=== PATIENT | female | born 1985 | race Caucasian/White ===

== ENCOUNTER 2018-03-12 23:35 | Inpatient (IN) | payer MEDICAID, SELFPAY ==
[2018-03-12 23:53] VITALS: BMI 19.3
[2018-03-12] MEDS: Lactated Ringer's 1,000 ML IV SCH (23:53)
[2018-03-13] MEDS ORDERED: NS / Oxytocin 40 units/1000ml 1,000 ML IV PRN (00:04)
[2018-03-13] MEDS ORDERED: Promethazine HCl 25 MG/ML VIAL IM PRN ×2 (00:04→01:21)
[2018-03-13] MEDS ORDERED: HYDROcodone/Acetaminophen 5/325 mg Tablet PO PRN ×2 (00:04)
[2018-03-13] MEDS ORDERED: Lidocaine 1% (PF) 30 ML VIAL SC PRN (00:04)
[2018-03-13] MEDS ORDERED: Ibuprofen 800 MG TAB PO PRN (00:04)
[2018-03-13] MEDS ORDERED: Butorphanol Tartrate 1 MG/ML VIAL SLOW IVP PRN (00:04)
--- NOTE | 2018-03-13 00:10 | PDOC.EVN ---
Event Note - Event Note Event Note: OBGYN H&P Faculty Note Patient just admitted to L&D as a no care patient, at 6cm. I have put in admit orders including UDS as well as GC and CHL vaginal PCRs. GBS unknown...use risk factors for prophylaxis (none now) Dr trejo seeing her now as field service specialist for admit, I will see her next.
[2018-03-13] MEDS ORDERED: Ondansetron PF 4 MG/2 ML Vial ONE (00:12)
[2018-03-13] MEDS ORDERED: Ondansetron PF 4 MG/2 ML Vial IVP PRN ×2 (00:15→01:21)
--- NOTE | 2018-03-13 00:22 | PDOC.LDHP ---
Labor and Delivery H&P Chief complaint: contractions HPI: 32 yo @ 37 weeks by lmp c/w 16 week sono at [facility] and no other care presents for painful contractions starting 2 days [employer] that stopped yesterday and returned yesterday evening. No other complications and no complications in prior pregnancies. Pt denies headache, cp , sob, vaginal bleeding, LOF, vag discharge. Reports pos movement. No other complaints. Current gestational age (weeks): 37 (0) Due date: 04/03/18 Dating criteria: last menstrual period Grav: 6 Para: 5 OB History Details: No PNC Current complications: other (No care) Current medications: none Previous surgical history: none Allergies/Adverse Reactions: Allergies Allergy/AdvReac Type Severity Reaction Status Date / Time No Known Allergies Allergy Verified 03/12/18 23:49 Social history: none - Physical Exam Vital signs reviewed and normal: yes General: NAD, breathing through contractions Heart: RRR Lungs: nonlabored breathing Abdomen: NTTP Extremeties: trace edema FHT: category 1, variability present [place] contractions every: 3-5 - Vaginal Exam cm dilated: 6 Effacement: 90% Station: 0 - OB Labs Blood type: unknown RH: unknown Antibody Screen: unknown HIV: unknown RPR: unknown HEPSAg: unknown 1 hour GCT: unknown GBS: unknown - Assessment L&D Assessment: term patient in labor - Plan Plan: admit to L&D -: 1) TIUP in active labor - admit l&d currently sujit q3-5 FHTs bl 120s mod variability pos accels w /o lates or variables - epidural for pain control 2) No PNC - no PNC labs ordered and pending - blood type, GCC, HIV RPR, UDS, HepB - consult case management
[2018-03-13 00:30] LABS: Hemoglobin 12.4 g/dL (12.0-16.0); Mean Corpuscular HGB CONC 33.9 g/dL (32.0-36.0); Mean Corpuscular Hemoglobin 30.6 pg (27.0-31.0); Mean Corpuscular Volume 90.2 fL (78.0-98.0); Mean Platelet Volume 9.9 fL (7.4-10.4); Platelet Count 304 thou/uL (130-400); RBC Distribution Width 11.5 % (11.5-14.5); Red Blood Cell (RBC) Count 4.05 mill/uL (4.20-5.40); White Blood Cell (WBC) Count 8.3 thou/uL (4.8-10.8)
[2018-03-13] MEDS: Lactated Ringer's 1,000 ML IV SCH (00:36)
[2018-03-13] MEDS ORDERED: Fentanyl 4 mcg/Bup 0.1% Cadd 100 ML ONE (00:39)
[2018-03-13 00:58] LABS: Syphilis Antibody Nonreactive (Nonreactive); Syphilis Antibody Index 0.03 S/CO (<1.00 Non-Reactive)
[2018-03-13 01:16] LABS: HIV (1/2) Antibody/Antigen Non-Reactive (NonReactive); HIV 1/2 INDEX 0.07 S/CO (<1.00)
[2018-03-13 01:18] LABS: HBSAB Concentration 43.36 mIU/mL; Hep B Surf AB Reactive (NonReactive)
[2018-03-13] MEDS ORDERED: ePHEDrine/0.9% NaCl/PF SYRINGE 50 mg/10 ml SLOW IVP PRN (01:21)
[2018-03-13] MEDS ORDERED: diphenhydrAMINE 50 MG/ML VIAL IVP PRN (01:21)
[2018-03-13] MEDS ORDERED: Eucerin (Mineral Oil/Petrolatum,White) 30 gm Jar TOP PRN (01:21)
[2018-03-13] MEDS ORDERED: Lactated Ringer's 500 ML IV PRN (01:21)
[2018-03-13] MEDS ORDERED: Acetaminophen 325 MG TAB PO PRN (01:21)
[2018-03-13] MEDS ORDERED: Naloxone HCl 0.4 mg/ml Vial IVP PRN ×2 (01:21)
[2018-03-13] MEDS ORDERED: Communication Order-Pharmacy FS SCH (01:30)
[2018-03-13] MEDS ORDERED: Fentanyl 4 mcg/Bupivacaine 0.1% Cassette 100 ML EPIDURAL SCH (01:30)
[2018-03-13 02:04] LABS: Amphetamine Not Detected (NotDetected); Barbiturates Screen Not Detected (NotDetected); Benzodiazepine Screen Not Detected (NotDetected); Cocaine Metabolite Screen Not Detected (NotDetected); Medtox Control Line Valid? VALID (VALID); Medtox Reader # READER 4; Methadone Not Detected (NotDetected); Methamphetamine Detected (NotDetected); Opiate Screen Not Detected (NotDetected); Oxycodone Screen Not Detected (NotDetected); Phencyclidine (PCP) Not Detected (NotDetected); THC/Cannabinoid Screen Not Detected (NotDetected); Tricyclic Screen Not Detected (NotDetected)
[2018-03-13] MEDS: NS / Oxytocin 40 units/1000ml 1,000 ML IV SCH ×2 (05:15→06:09)
--- NOTE | 2018-03-13 05:24 | PDOC.OPDEL ---
OB Operative/Delivery Note Delivery Dr/Surgeon: Bhupendra/Matthew (Delivery by Bhupendra; Matthew Staff) Pre-Delivery Diagnosis: active labor, other (positive UDS for meth) Procedure/Post Delivery Dx: spontaneous vaginal delivery Weeks gestation: 37 Anesthesia: epidural - Findings A Sex: male - 1 min: 8 - 5 min: 9 - Additional Findings/Plan Placenta delivered: spontaneous (3VC, intact) Repaired Obstetrical Laceration: 1st degree (periurethral left, not requiring repair) Estimated blood loss: 300 (QBL pending) Compilations/Other Findings: Vigorous male with no NC, spont cry...no episiotomy; counts correct Post delivery plan: routine recovery (NICU aware of UDS)
--- NOTE | 2018-03-13 05:27 | PDOC.EVN ---
Event Note - Event Note Event Note: UDS positive for methampetamines...NICU aware. case management consulted.
[2018-03-13] MEDS ORDERED: Lanolin Ointment 7 GM TUBE TOP PRN (05:33)
[2018-03-13] MEDS ORDERED: Milk Of Magnesia 30 ML UDCUP PO PRN (05:33)
[2018-03-13] MEDS ORDERED: diphenhydrAMINE 25 MG CAP PO PRN (05:33)
[2018-03-13] MEDS ORDERED: Measles/Mumps/Rubella 10 MCG/0.5 ML VIAL SC ONE (05:33)
[2018-03-13] MEDS ORDERED: Adacel (T-DAP) 0.5 ML SYRINGE IM ONE (05:33)
[2018-03-13] MEDS ORDERED: Acetaminophen/Codeine 30-300mg Tablet PO PRN ×2 (05:33)
[2018-03-13] MEDS ORDERED: Varicella virus, LIVE 0.5 ML VIAL SC ONE (05:33)
[2018-03-13] MEDS ORDERED: Preparation H Ointment 28 GM TUBE PR PRN (05:33)
[2018-03-13] MEDS ORDERED: Benzocaine/Menthol 20-0.5% 60 ML CAN TOP PRN (05:33)
[2018-03-13] MEDS ORDERED: Bisacodyl 10 MG SUPP PR PRN (05:33)
--- NOTE | 2018-03-13 05:33 | PDOC.EVN ---
Event Note - Event Note Event Note: Lab Check: HBS antibody positive...we will draw Hep B surface antigen now (we charles antibody rather than antigen)
[2018-03-13 06:14] LABS: Acetaminophen Less than 6.0 mcg/mL (10.0-30.0); Alcohol Less than 10 mg/dL (Less than 10); Salicylate Less than 8.0 mg/dL (15.0-30.0)
[2018-03-13 06:22] LABS: HBSAg Index 0.21 S/CO (0-0.99); Hep B Surf Ag Non-Reactive S/CO (NonReactive)
[2018-03-13] MEDS: Ferrous Sulfate 325 MG TAB PO SCH ×2 (09:08→16:50)
[2018-03-13] MEDS: Prenatal Vitamin 1 TAB PO SCH (09:43)
[2018-03-13] MEDS: Ibuprofen 800 MG TAB PO SCH ×2 (09:43→17:23)
[2018-03-13] MEDS: Docusate Calcium (SURFAK) 240 MG CAP PO SCH ×2 (09:43→21:37)
[2018-03-13] MEDS ORDERED: Bupivacaine/Epinephrine 0.25% 30 ML VIAL ONE (17:57)
[2018-03-13] MEDS ORDERED: Bupivacaine PF 0.5% 30 ML VIAL ONE (17:57)
[2018-03-13] MEDS ORDERED: Sodium Chloride 0.9% (PF) 10 ML VIAL ONE (17:57)
[2018-03-13] MEDS ORDERED: Bupivacaine 0.25% HCL 30 ML VIAL ONE (17:57)
[2018-03-14] MEDS: Ibuprofen 800 MG TAB PO SCH ×4 (00:17→21:11)
[2018-03-14 05:49] LABS: Hemoglobin 10.1 g/dL (12.0-16.0); Mean Corpuscular HGB CONC 32.9 g/dL (32.0-36.0); Mean Corpuscular Hemoglobin 30.2 pg (27.0-31.0); Mean Corpuscular Volume 91.7 fL (78.0-98.0); Platelet Count 232 thou/uL (130-400); RBC Distribution Width 11.6 % (11.5-14.5); Red Blood Cell (RBC) Count 3.34 mill/uL (4.20-5.40); White Blood Cell (WBC) Count 9.1 thou/uL (4.8-10.8)
--- NOTE | 2018-03-14 08:00 | PDOC.PP ---
Post Progress Note Post Day #: 1 Subjective: Doing well, no complaints. PO intake tolerated: yes Ambulation: yes Vital Signs (12 hours) Temp Pulse Resp BP BP Pulse Ox 03/14/18 07:37 98.5 F 63 20 106/73 99 03/14/18 03:33 97.6 F 57 L 16 109/66 03/14/18 00:20 97.7 F 60 16 103/69 03/13/18 20:00 97.9 F 85 16 113/72 99 Weight Weight 120 lb - Physical Examination General: NAD Respiratory: non-labored breathing Abdominal: lochia (normal), no distention, appropriately TTP Fundus firm & at: below umbilicus Extremities: negative homans (B) Neurological: no gross focal deficits Psychiatric: A&Ox3, normal affect Result Diagrams: 03/14/18 05:31 Additional Labs: Post Labs Blood Type A POSITIVE 03/12/18 23:55 Hep Bs Antigen Non-Reactive S/CO (NonReactive) 03/12/18 23:55 (1) Grand multipara Code(s): Z64.1 - PROBLEMS RELATED TO MULTIPARITY Status: Acute (2) Methamphetamine use Code(s): F15.10 - OTHER STIMULANT ABUSE, UNCOMPLICATED Status: Acute (3) No care in current Code(s): O09.30 - SUPRVSN OF PREG W INSUFFICIENT ANTENAT CARE, UNSP TRIMESTER Status: Acute (4) Vaginal delivery Code(s): O80 - ENCOUNTER FOR FULL-TERM UNCOMPLICATED DELIVERY Status: Acute - Assessment/Plan Doing well without complaints. Concerned about + meth on urine drug screen. Serum drug screen pending. Case management consult pending. Anticipate d/c tomorrow.
[2018-03-14] MEDS: Prenatal Vitamin 1 TAB PO SCH (09:45)
[2018-03-14] MEDS: Docusate Calcium (SURFAK) 240 MG CAP PO SCH ×2 (09:45→21:11)
[2018-03-14] MEDS: Ferrous Sulfate 325 MG TAB PO SCH ×2 (09:45→18:41)
[2018-03-14 12:26] LABS: Ref Lab Test Ordered CONF URINE AMP/METHA; Reference Lab Name LABCORP
[2018-03-15] MEDS: Ibuprofen 800 MG TAB PO SCH (05:13)
[2018-03-15] MEDS: Ferrous Sulfate 325 MG TAB PO SCH (07:47)
[2018-03-15 08:23] VITALS: BP 116/81; TEMP 97.7
[2018-03-15] MEDS: Docusate Calcium (SURFAK) 240 MG CAP PO SCH (09:49)
[2018-03-15] MEDS: Prenatal Vitamin 1 TAB PO SCH (09:49)
--- NOTE | 2018-03-15 13:43 | PDOC.EVN ---
Event Note - Event Note Event Note: Patient discharged home this AM by Dr Koenig. I was asked to pace the discharge order after he evaluated her. Order placed by me but seen by Dr Koenig
[2018-03-15 14:14] LABS: Chlamydia by PCR Not Detected (NotDetected); GC by PCR Not Detected (NotDetected)
--- NOTE | 2018-03-15 21:45 | DIS ---
DATE OF ADMISSION: 03/13/2018 DATE OF DISCHARGE: 03/15/2018 ADMITTING DIAGNOSES: 1. Term . 2. No care. 3. Positive drug screen. DISCHARGE DIAGNOSES: 1. Term . 2. No care. 3. Positive drug screen. 4. Confirmatory test pending. PROCEDURE: Term spontaneous vaginal delivery. CONSULTATIONS: None. HOSPITAL COURSE: The patient is a 32-year-old female, who presented to Labor and Delivery without care and in active labor. She proceeded with an estimated gestational age of 37 weeks. She proceeded with uncomplicated term spontaneous vaginal delivery and was sent to for routine care. Her course has been complicated only by this drug screen positive for methamphetamines, which the patient denies use and is requesting a confirmatory test. Her course has otherwise been uncomplicated. OBJECTIVE: VITAL SIGNS: Blood pressure is 100/62, temperature 97.8, pulse of 65, respiratory rate of 16, saturating 98% on room air. GENERAL: She appears to be in no acute distress. She is alert, oriented, cooperative, and pleasant to interact. HEENT: Head is normocephalic, atraumatic. Fundus is firm. ABDOMEN: Nontender. EXTREMITIES: Nontender, nonedematous. The patient is being discharged to home. She has instructions to follow up with [facility] [place] in 6 weeks or sooner should she experience fever, increasing pain or bleeding. The patient is being discharged without any medications and is to take [id number] ibuprofen as needed for pain control. CPS came by yesterday and performed her own drug screen, which came back negative and is satisfied to discharge mom and baby together. Job ID: [id number]
== END 2018-03-15 12:15 | disposition home or self-care (01) | DRG 806 ==
LOC: L&D/OP 23:35 → L&D 03-13 00:08 → 3SW 03-13 08:43
PROVIDERS: ADMIT Obstetrics & Gynecology; ATTEND Obstetrics & Gynecology
PROC: 10E0XZZ Delivery of Products of Conception, External Approach (ICD-10-PCS; principal; 2018-03-13)
PROC: 0UQMXZZ Repair Vulva, External Approach (ICD-10-PCS; 2018-03-13)
DX: O71.82 Other specified trauma to perineum and vulva (principal); O99.325 Drug use complicating the puerperium; Z37.0 Single live birth; F15.90 Other stimulant use, unspecified, uncomplicated; Z3A.37 37 weeks gestation of pregnancy
CPT/HCPCS: 36415; 51702; 80306; 80307; 85027; 86706; 86762; 86780; 86850; 86900; 86901; 87340; 87389; 87491; 87591; 99285; J2001; J2405; S0020

== ENCOUNTER 2022-02-19 11:04 | Outpatient (CLI) | payer SELFPAY | END 2022-02-19 11:05 | disposition home or self-care (01) | LOC: RAD 11:04 | PROVIDERS: ATTEND Hospitalist | DX: R07.9 Chest pain, unspecified (principal) | CPT/HCPCS: 93306 ==

== ENCOUNTER 2024-04-17 23:11 | Emergency (ER) | payer SELFPAY ==
[2024-04-18] MEDS ORDERED: Morphine 4 MG/ML VIAL ONE ×2 (00:05→04:17)
[2024-04-18] MEDS ORDERED: Ondansetron PF 4 MG/2 ML Vial ONE (00:05)
[2024-04-18 00:07] LABS: #Basophils 0.07 10x3/uL (0.0-0.2); %Basophils 0.5 % (0.0-1.0); %Lymphocytes 15.8 % (21.0-51.0); %Monocytes 4.5 % (0.0-10.0); %Neutrophils 74.2 % (42.0-75.0); Hematocrit 30.7 % (36.0-47.0); Mean Corpuscular HGB CONC 32.6 g/dL (32.0-36.0); Mean Corpuscular Hemoglobin 28.6 pg (27.0-31.0); Mean Corpuscular Volume 87.7 fL (78.0-98.0); Mean Platelet Volume 9.2 fL (7.4-10.4); Platelet Count 479 10x3/uL (130-400); RBC Distribution Width 13.1 % (11.5-14.5)
[2024-04-18 00:25] LABS: INR-International Normal Ratio 0.9; Prothrombin Time 11.7 sec (12.0-14.7)
[2024-04-18 00:26] LABS: PTT 27.3 sec (22.9-36.1)
[2024-04-18 00:27] LABS: ALT (SGPT) 13 U/L (Less than 34); AST (SGOT) 22 U/L (11-34); Albumin 2.9 g/dL (3.1-4.5); Alkaline Phosphatase 71 U/L (40-110); Anion Gap 16 mmol/L (10-20); BUN (Urea Nitrogen) 14 mg/dL (7.0-18.7); Bilirubin, Total 0.2 mg/dL (0.3-1.2); Calc. Creatinine Clearance 0 mL/min (70-130); Carbon Dioxide 19 mmol/L (22-29); Chloride 110 mmol/L (98-107); Estimated GFR 122; Globulin 4.5 g/dL (2.4-3.5); Glucose 96 mg/dL (70-105); Potassium 3.8 mmol/L (3.5-5.1); Protein, Total 7.4 g/dL (6.0-8.3); Sodium 141 mmol/L (136-145)
[2024-04-18] MEDS ORDERED: Acetaminophen 325 MG TAB ONE (04:17)
== END 2024-04-18 12:47 | disposition home or self-care (01) ==
LOC: ERS 23:11
DX: G97.1 Other reaction to spinal and lumbar puncture (principal); I10 Essential (primary) hypertension
CPT/HCPCS: 36416; 62272; 80053; 85025; 85610; 85730; 96374; 96376; J2270; J2405